=== PATIENT | male | born 1965 | race Caucasian/White ===

== ENCOUNTER 2019-09-07 19:04 | Inpatient (IN) | payer OTHER ==
[~2019-09-07] VITALS: Ht 175.3 cm; Wt 89.4 kg
[2019-09-07 19:05] VITALS: BP 94/61
[2019-09-07] MEDS ORDERED: TRAMADOL 50 MG50 MG PO (19:19)
[2019-09-07] MEDS ORDERED: NEURONTIN600 MG PO (19:19)
[2019-09-07] MEDS ORDERED: LISINOPRIL40 MG PO (19:19)
[2019-09-07] MEDS ORDERED: BENTYL 20 MG TA20 M1 PO (19:20)
[2019-09-07] MEDS ORDERED: SERTRALINE HCL50 MG PO (19:20)
[2019-09-07] MEDS ORDERED: LEVSIN0.125 MG PO (19:21)
[2019-09-07 19:27] LABS: ABSOLUTE NEUTROPHILS 14.2 thou/uL (1.4-8.2); BASOPHILS 0.7 % (0.0-2.0); EOSINOPHILS 0.6 % (0.0-3.0); HEMATOCRIT 41.7 % (42.0-52.0); HEMOGLOBIN 14.1 gm/dL (14.0-18.0); LYMPHOCYTES 15.3 % (24.0-44.0); MCH 32.1 pg (26.0-34.0); MCHC 33.8 g/dL (28.0-37.0); MCV 95.1 fL (80.0-100.0); MONOCYTES 8.6 % (1.0-8.0); PLATELET COUNT 437 thou/uL (150-400); POLYS 74.8 % (36.0-66.0); RBC 4.39 mil/uL (4.50-6.00)
[2019-09-07 19:36] LABS: ANION GAP 8 mmol/L (7-16); BUN 22 mg/dL (7-18); CALCIUM 7.7 mg/dL (8.5-10.1); CHLORIDE 99 mmol/L (98-107); CO2 26 mmol/L (21-32); CREATININE 2.1 mg/dL (0.7-1.3); GLUCOSE 122 mg/dL (74-106); POTASSIUM 3.7 mmol/L (3.5-5.1); SODIUM 133 mmol/L (136-145)
[2019-09-07 19:46] LABS: ALBUMIN 3.3 g/dL (3.4-5.0); SGOT 42 U/L (15-37); SGPT 103 U/L (30-65); TOTAL BILIRUBIN 0.2 mg/dL (0.2-1.0); TOTAL PROTEIN 6.5 g/dL (6.4-8.2); TROPONIN-I <0.06 ng/mL (<0.06)
[2019-09-07 21:34] VITALS: BP 106/58
[2019-09-07 21:48] LABS: URINE BILIRUBIN NEGATIVE (Negative); URINE BLOOD NEGATIVE (Negative); URINE CLARITY CLEAR; URINE COLOR YELLOW; URINE GLUCOSE-RANDOM* NEGATIVE (Negative); URINE KETONES NEGATIVE (Negative); URINE LEUKOCYTES-REFLEX NEGATIVE (Negative); URINE NITRITE-REFLEX NEGATIVE (Negative); URINE PROTEIN (DIPSTICK) TRACE (Negative); URINE UROBILINOGEN 0.2 E.U./dl (0.2-1.0)
[2019-09-07 22:41] VITALS: BP 101/74
[2019-09-07 23:10] VITALS: BP 112/69
[2019-09-08 04:45] VITALS: BP 96/58
[2019-09-08 05:14] LABS: HEMATOCRIT 41.4 % (42.0-52.0); HEMOGLOBIN 13.5 gm/dL (14.0-18.0); MCH 31.6 pg (26.0-34.0); MCHC 32.7 g/dL (28.0-37.0); MCV 96.8 fL (80.0-100.0); RBC 4.28 mil/uL (4.50-6.00); RDW 14.6 % (10.5-14.5); WBC 11.7 thou/uL (4.0-11.0)
[2019-09-08 06:28] LABS: CALCIUM 7.8 mg/dL (8.5-10.1); CREATININE 1.3 mg/dL (0.7-1.3); MAGNESIUM 2.3 mg/dL (1.8-2.4)
[2019-09-08 06:39] LABS: POTASSIUM 4.7 mmol/L (3.5-5.1)
[2019-09-08 07:19] LABS: CHOLESTEROL 161 mg/dL (<200); HDL CHOLESTEROL 50 mg/dL (>40); LDL CHOLESTEROL 77 mg/dL (<100); TC:HDL 3.2 Ratio (Not establshd); TRIGLYCERIDE 171 mg/dL (<150); VLDL 34 mg/dL (<40)
--- NOTE | 2019-09-08 07:56 | EKG ---
[facility] [place] [address] ELECTROCARDIOGRAM REPORT Name: KAILEE JIMENEZ Room #: 206-P ADM IN M.R.#: [id number] Admission: 09/07/19 Attend Phys: Brady Jones MD Discharge: Date of : 65 Report #: [id number] THIS REPORT FOR: cc: LENNY - Deyanira family physician/PCP FAM - No family physician/PCP Jarrell Lepe MD [facility] ~ THIS REPORT FOR: //name// [facility] ED Test Date: 2019-09-07 Test Time: 19:11:15 Pat Name: KAILEE JIMENEZ Department: Room: [facility] Gender: M [employer] Man: : 1965 Requested By: Savannah Finley Order Number: [id number] MD: Jarrell Lepe Measurements Intervals [place] Rate: 82 P: 76 WV: 123 QRS: 76 QRSD: 87 T: 50 QT: 359 QTc: 420 Interpretive Statements Sinus rhythm ST elev, probable normal early repol pattern Baseline wander in lead(s) V2 No previous ECG available for comparison Electronically Signed On 09-08-2019 7:56:45 CDT by Jarrell Lepe [email or web address] <ELECTRONICALLY SIGNED> By: Jarrell Lepe MD, [facility] 09/08/19 0756 10 10 Jarrell Lepe MD, [facility] /EPI
[2019-09-08 08:00] VITALS: BP 120/78
--- NOTE | 2019-09-08 08:19 | NUR ---
RECEIVED REPORT FROM LUPE.PATIENT A/O X 4.PAIN FAIRLY CONTROLLED.ULTRASOUND THIS AM.POC CONTINUED.
--- NOTE | 2019-09-08 09:39 | 2DMMODE ---
[facility] [address] [facility] [place] [address] 2 D/M-MODE ECHOCARDIOGRAM Name: KAILEE JIMENEZ Room #: 206-P ADM IN M.R.#: [id number] Admission: 09/07/19 Attend Phys: Brady Jones MD Discharge: Date of : 65 Report #: [id number] THIS REPORT FOR: cc: LENNY - No family physician/PCP FAM - No family physician/PCP Alec Crum MD ~ APPROVED REPORT Study performed: 09/08/2019 08:54:40 EXAM: Comprehensive 2D, Doppler, and color-flow Echocardiogram Patient Location: Bedside Room #: 206 Status: routine BSA: 2.04 HR: 55 bpm BP: 120/78 mmHg Rhythm: NSR Other Information Study Quality: Fair Technically limited study due to lung artifact, COPD. Indications Pre-syncope. Hx: HTN, CVA, COPD. 2D Dimensions RVDd: 39.42 mm IVSd: 9.70 (7-11mm) LVOT Diam: 24.35 (18-24mm) LVDd: 44.04 mm PWd: 10.91 (7-11mm) Ascending Ao: 32.53 (22-36mm) LVDs: 29.45 (25-40mm) Aortic Root: 37.28 mm Volumes Left Atrial Volume (Systole) Single Plane 4CH: 53.97 mL Single Plane 2CH: 53.15 mL LA ESV Index: 28.00 mL/m2 Aortic Valve AoV Peak Rojas.: 1.40 m/s AO Peak Gr.: 7.81 mmHg LVOT Max P.[address] [facility] [address] [place] [address] 2 D/M-MODE ECHOCARDIOGRAM Name: KAILEE JIMENEZ Room #: 206-P [facility] IN [facility].#: [id number] Admission: 09/07/19 Attend Phys: Brady Jones, Discharge: Date of : 65 Report #: [id number] LVOT Max V: 1.26 m/s SADIQ Vmax: 4.21 cm2 Mitral Valve E/A Ratio: 1.8 MV Decel. Time: 230.26 ms MV E Max Rojas.: 0.94 m/s MV A Rojas.: 0.53 m/s MV PHT: 66.78 ms IVRT: 83.04 ms Pulmonary Valve PV Peak Rojas.: 0.81 m/s PV Peak Gr.: 2.62 mmHg Pulmonary Vein P Vein S: 0.57 m/s P Vein A: 0.34 m/s P Vein D: 0.59 m/s P Vein A Dur.: 124.6 msec P Vein S/D Ratio: 0.97 Tricuspid Valve RAP Estimate: 5.00 mmHg Left Ventricle The left ventricle is normal size. There is normal LV segmental wall motion. There is normal left ventricular wall thickness. Left ventricular systolic function is normal. LVEF is 60-65%. The left ventricular diastolic function is normal. Right Ventricle The right ventricle is normal size. The right ventricular systolic function is normal. Atria The left atrium size is normal. The right atrium size is normal. Aortic Valve The aortic valve is normal in structure. No aortic regurgitation is present. There is no aortic valvular stenosis. Mitral Valve The mitral valve is normal in structure. There is no mitral valve regurgitation noted. No evidence of mitral valve stenosis. Tricuspid Valve The tricuspid valve is normal in structure. There is no tricuspid [facility] [address] [place] [address] 2 D/M-MODE ECHOCARDIOGRAM Name: KAILEE JIMENEZ Room #: 206-P ADM IN M.R.#: [id number] Admission: 09/07/19 Attend Phys: Brady Jones, Discharge: Date of : 65 Report #: [id number] valve regurgitation noted. Unable to assess PA pressure. Pulmonic Valve Pulmonic valve is not well visualized. Great Vessels The aortic root is normal in size. The ascending aorta is normal in size. IVC is normal in size and collapses >50% with inspiration. Pericardium There is no pericardial effusion. <Conclusion> The left ventricle is normal size. LVEF is 60-65%. The aortic valve is normal in structure. The mitral valve is normal in structure. The tricuspid valve is normal in structure. Pulmonic valve is not well visualized. There is no pericardial effusion. <ELECTRONICALLY SIGNED> By: Alec Crum MD 09/08/19937 7 7 Alec Crum MD /INF
[2019-09-08 13:20] VITALS: BP 125/72
--- NOTE | 2019-09-08 19:53 | NUR ---
08:00 AOX4, C/O CHRONIC ABDOMEN PAIN AND REFLUX, PAIN MEDICATION GIVEN FOR SUCH AT THIS TIME. PT. HAS ECHO PENDING ON THEIR WAY TO PERFORM. DENIES CP, DENIES SOB. IV SITE IS C,D,I NO INFILTRAION AT SITE. FOLLOWS ALL COMANDS AND DENIES ANY FEELINGS OF BEING DIZZY THIS AM
--- NOTE | 2019-09-08 19:55 | NUR ---
12:00 PT A0X4 C/O PAIN AT ABDOMEN AGAIN, MEDICATED FOR SUCH. AT BESIDE WITH DIET BEVERAGE HE LIKES. STATED HAS A LONG HX OF GI ISSUES NOT RESOLVED YET BUT A COLONOSCOPY NEXT MONTH PENDING.
--- NOTE | 2019-09-08 19:56 | NUR ---
14:00 C/O PAIN MEDICATE FOR ABDOMEN AND GI PAIN TODAY. DENIES FEELING DIZZY AND SELF AMBULATES TO RESTOOM ALONE WITH NO BP CHANGES OBSERVED.
[2019-09-08 20:10] VITALS: BP 120/77
[2019-09-09 00:10] VITALS: BP 129/73
--- NOTE | 2019-09-09 03:42 | NUR ---
PT VITALS ARE STABLE. HE IS ALERT AND ORIENTED X4. COMPLAINS OF ABDOMINAL PAIN. AND PAIN MEDS GIVEN FOR DISCOMFORT. PT SLEEPING NOW WITH TV ON. LUNGS ARE CLEAR ON ROOM AIR. PT HAS HAD A LAMINECTOMY AND HAS BACK PAIN AND ABDOMINAL PAIN. ABDOMEN IS SOFT. BOWEL SOUNDS PRESENT. TAKEN DOWN FOR DIAGNOSITC TESTING THIS EVENING. CALL LIGHT WITHIN REACH IF NEEDS ASSISTANCE.
[2019-09-09 08:30] VITALS: BP 128/85
--- NOTE | 2019-09-09 11:45 | HC ---
[facility] [address] CONSULTATION Name: KAILEE JIMENEZ Room #: 206-P [facility] IN M.R.#: [id number] Admission: 09/07/19 Attend Phys: Bardy Jones MD Discharge: Date of : 65 Report #: [id number] THIS REPORT FOR: cc: LENNY Mcmillan family physician/PCP LENNY Mcmillan family physician/PCP Ethan Schofield MD ~ CC: [facility] physician/PCP Brady Jones DATE OF SERVICE: 09/08/2019 ENDOCRINE CONSULTATION NOTE CONSULTING PHYSICIAN: Dr. Jones. REASON FOR CONSULTATION: Hypothyroidism. 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 On arrival, the patient was found to be hypotensive and was admitted for further care and monitoring. During his admission workup, the patient was also screened for the issue of thyroid dysfunction, and was found to be hypothyroid. On further questioning, the patient explained that he was not aware of any prior personal or family history of thyroid disease. He has not experienced major body weight changes, skin changes, hair changes and has not appreciated much in terms of cold intolerance. Also, he has not had major difficulties with neck fullness, neck pain, compressive symptoms or voice changes. REVIEW OF SYSTEMS: CONSTITUTIONAL: Fatigue, tiredness. No major weight changes, fever or chills. HEENT: Negative for sore throat, sinus pain or ear drainage. PULMONARY: Negative for shortness of breath, cough or hemoptysis. CARDIAC: Negative for chest pain, palpitations, but noted for presyncope on arrival as well as hypertension. GASTROINTESTINAL: Negative for abdominal pain, nausea, vomiting or changes in bowel movement frequency. NEUROLOGY: Noted for dizziness, lightheadedness, but not loss of consciousness, seizure activity or severe frequent headaches. DERMATOLOGIC: Negative for skin rash, ulceration, discoloration or other major abnormalities. Otherwise, review of systems noncontributory other than those mentioned in HPI. PAST MEDICAL HISTORY: Noted for: [facility] [address] [place] [address] CONSULTATION Name: KAILEE JIMENEZ Room #: 206-P ADM IN M.R.#: [id number] Admission: 09/07/19 Attend Phys: Brady Jones MD Discharge: Date of : 65 Report #: [id number] 1. Hypertension. 2. CVA. 3. COPD. 4. Cervical spine stenosis. 5. Severe IBS. 6. History of ischemic colitis. 7. GERD. 8. History of pneumonia. 9. Depression. PAST SURGICAL HISTORY: C6-C7 fusion, L4-S1 laminectomy, right elbow surgery, lung biopsy. OUTPATIENT MEDICATIONS: Include lisinopril 40 mg daily, gabapentin 1200 mg t.i.d., tramadol 50 mg daily, Bentyl 20 mg t.i.d., sertraline 50 mg daily, Levsin 0.125 mg t.i.d. ALLERGIES: OMEPRAZOLE. FAMILY HISTORY: Noncontributory. SOCIAL HISTORY: The patient smokes a half a pack per day. Denies use of alcohol or illicit drugs. Works as a golf course keeper. He is and has 2 children. PHYSICAL EXAMINATION: GENERAL: Pleasant male patient who is not in apparent pain or distress. His was at bedside when I interviewed him. VITAL SIGNS: Blood pressure is 120/78 mmHg, heart rate is 51 beats per minute, respirations 12 per minute, temperature 36.3 degrees Celsius. CONSTITUTIONAL: The patient is sitting upright in bed, appears comfortable, not in apparent pain or distress. HEENT: Anicteric sclerae. Intact extraocular motions. NECK: Supple, without JVD, carotid bruits or lymphadenopathy. I do not appreciate thyromegaly. CHEST: Noted for good air entry bilaterally with scattered rales and rhonchi, but not wheezes or crackles. HEART: Regular rate and rhythm without murmurs or gallops. ABDOMEN: Soft, lax. No guarding. Active bowel sounds. EXTREMITIES: Lower extremity exam is negative for ankle edema, skin breaks or ulcerations. NEUROLOGIC: Awake, alert and oriented to time, place and person. The remainder of his examination is nonfocal. PSYCHIATRIC: Pleasant, interactive. Normal mood and affect. Normal thought process. [address] [address] CONSULTATION Name: KAILEE JIMENEZ Room #: 206-P [facility] IN M.R.#: [id number] Admission: 09/07/19 Attend Phys: Brady Jones MD Discharge: Date of : 65 Report #: [id number] LABORATORY RESULTS: Laboratory data were reviewed at length and showed a sodium of 135, this was 133 on arrival. Potassium 4.7, chloride 103, CO2 of 24, anion gap 8, BUN 21, creatinine 1.3, glucose 89, AST 42, total bilirubin 4.2, calcium 7.8, magnesium 2.3, alkaline phosphatase 58, ALT 103, total protein 6.5, albumin 3.3, EGFR 58. Troponin is negative. Total cholesterol 161, triglycerides 171, HDL 50, LDL 77. Free T4 of 0.7. White blood count 11.7, hemoglobin 13.5, hematocrit 41.4, platelets 288. TSH 38.655. ASSESSMENT AND PLAN: 1. Hypothyroidism. This is a new diagnosis to the patient and I certainly noted for a thyroid function indices that are consistent with overt hypothyroidism. The patient and his were counseled at length about the pathogenesis of hypothyroidism, its implications, and the importance of achieving and maintaining adequate thyroid hormone control to avoid long-term implications. We also discussed the details of levothyroxine intake for optimal absorption and the need for periodic followup. The patient's questions were answered in full. While the patient will need to be started on levothyroxine therapy, I would like to hold this off until we are assured that his adrenal, pituitary axis is intact, so as to address any issues with adrenal insufficiency that might not be identified at this point. 2. Hypotension. As noted above, the patient presented with a near syncopal episode and was found to be hypotensive on arrival. While the patient is undergoing a Cardiology workup for this issue and while the current therapeutic regimen for pain and neuropathy control could be contributing to this, I would like to rule out the possibility of adrenal insufficiency. In doing so, I will obtain a random cortisol level. If this is sufficient to rule out AI, I will proceed with thyroid hormone therapy. However, if the results are ambiguous or inconclusive, then an ACTH stimulation test will be ordered. 3. Hypocalcemia, although asymptomatic, it is significant at 7.8 mg/dL. I will order a vitamin D level to investigate the possibility of vitamin D deficiency. I certainly appreciate this consultation by Dr. Jones. <ELECTRONICALLY SIGNED> By: Ethan Schofield MD 09/09/19 1145 1244 1334 Ethan Schofield MD /nt
--- NOTE | 2019-09-09 12:22 | NUR ---
08:00 AM= ASSESSMENT COMPLETED AT THIS TIME. PT. IS SOMEWHAT DEMANDING THIS AM. TELLS STAFF WHAT TO DO, [employer]. HAS REQUESTED PAIN MEDICATION FIRST CONVERSATION AND WILL PROVIDE. REPORTS PAIN IS =8/10 AND WANTS HIS "FENTANYL" FIRST FOR LAMINECTOMY AND ABDOMEN PAIN. PT. EATS THOUGH WITH ZERO ISSUES OR NAUSEA OR VOMITING SO ABDOMEN PAIN REPORTING DOES NOT SEEM TO ALIGN WITH PHYSICAL CUES FOR ASSESSMENT TODAY? LONG DISCUSSION REGRDING CT SCAN LAST NIGHT AND WHY PERFORMED, EXPLAINED THEY ARE DOING A WORK UP AND THAT THEY ARE TRYING TO FURTHER DEFINE IMAGES THEY SAW ONT HE CHEST XRAY. WILL HAVE DR. ISRAEL DISCUSS THIS WITH HIM THIS AM FURTHER. DENIES ANY SOB, ON ROOM AIR AND LUNGS ARE CLEAR PRIOR. DENIES ANY CP. CALL LIGHT WITHIN REACH AND REVIEWED TO CALL ME FOR THINGS NEEDED TODAY-AGREED TO SUCH.
[2019-09-09 12:25] VITALS: BP 145/95
--- NOTE | 2019-09-09 12:25 | NUR ---
PT. ASKING FOR PAIN MEDICATION WILL PROVIDE FOR "BACK PAIN AND ABDOMEN PAIN AND TOLD ME HE WANTS TO " MAKE SURE HE GETS ALL OF HIS MEDICATION WHILE HE CAN". CONTINUES TO BE SB WITH NO ECTOPY ON ROOM AIR AND NO WHEEZING AUSCULTATED NOW. ABDOMEN IS ROUNDED BUT VERY SOFT ON PALPATION, + BOWEL SOUNDS ON ALL QUADRANTS. AWAITING AN ACTH STIM TEST AND CALLED LAB TO CONFIRM TESTING TIMES WITH THEM ONCE IT IS GIVEN.
[2019-09-09 12:28] VITALS: BP 128/85
--- NOTE | 2019-09-09 13:44 | NUR ---
Chart reviewed and discussed with the care team. Manager Shift visited with the pt and his Norma at bedside. Pt is &ox4 and indep with gait and adl's. Pt is feeling better and workup in progress for adrenal/thyroid issues. The pt reports he had recently left his job and is back to working for himself. He is awaiting the cobra paperwork from his previous employer so he can get that coverage in place until they are able to setup an individual plan or [employer]. gov coverage in the future. He has a pcp Dr. Jaiden Dos Santos in [place], [place]. He is familiar with good rx and the [facility] $4 scripts. He denies any dc needs or concerns at this time. He is relieved to be getting to the bottom of why he has been feeling poorly. Dc later today or tomorrow. Will follow along should dc needs arise.
--- NOTE | 2019-09-09 16:43 | NUR ---
PT. DONE NOW WITH ACTH STIM TEST, TOLERATED IT WELL. NO CHESTPAIN, NO SOB. ASKING FOR PAIN MEDICATION AT THIS ITME FOR HIS BACK, WILL RESPOND. SCORES PAIN 7/10, CHRONIC IN NATURE, NOT NEW.
[2019-09-09 16:52] VITALS: BP 136/85
[2019-09-09 19:50] VITALS: BP 129/60
--- NOTE | 2019-09-10 02:05 | NUR ---
PT WAS FIRST SEEN BY RN WALKING AROUND IN UNIT, PT IS TALKATIVE AND ABLE TO AMBULATE SELF AROUND THE UNIT WHILE CARRYING THE IV POLE. PT REQUESTS IV FENTANYL AROUND THE CLOCK, WELL TRAMADOL AROUND THE CLOCK FOR GENERALIZED ABDOMINAL PAIN AND POSITIONAL NECK PAIN. PT IS AOX4, PLEASANT. PT STATED AN IV SITE WAS LEAKING SO NEW IV WAS PLACED FOR THE PT WELL. PT REQUESTED FENTANYL TO BE GIVEN AT 0130 BUT WHEN RN WENT IN THE ROOM, THE PT WAS SLEEPING. WILL ADMINISTER AT A LATER TIME TO AVOID OVER SEDATION. NO SPECIFIC CONCERNS FROM THE PT AT THIS TIME. PT IS STABLE, HAS A HEALTHY APPETITE, AND NO DISTRESS NOTED. WILL CONTINUE TO MONITOR AND UPDATE NEEDED
[2019-09-10 02:06] LABS: CORTISOL 30 MIN 2.1 ug/dL (Not Estab.); CORTISOL 60 MIN 18.9 ug/dL (Not Estab.); CORTISOL BASELINE 21.7 ug/dL (())
[2019-09-10 04:06] VITALS: BP 146/78
[2019-09-10 05:51] LABS: HEMOGLOBIN 14.9 gm/dL (14.0-18.0); MCH 31.8 pg (26.0-34.0); MCHC 33.1 g/dL (28.0-37.0); MCV 96.1 fL (80.0-100.0); RBC 4.68 mil/uL (4.50-6.00); RDW 14.2 % (10.5-14.5); WBC 8.6 thou/uL (4.0-11.0)
[2019-09-10 06:28] LABS: CREATININE 1.1 mg/dL (0.7-1.3); POTASSIUM 4.2 mmol/L (3.5-5.1)
[2019-09-10 07:55] VITALS: BP 155/90
[2019-09-10] MEDS ORDERED: AUGMENTIN 875-1 EACH PO (11:07)
[2019-09-10] MEDS ORDERED: SYNTHROID137 MC1 PO (11:07)
[2019-09-10 11:30] VITALS: BP 155/90
[2019-09-10] MEDS ORDERED: NORCO 10-325 T1 EACH PO (11:39)
--- NOTE | 2019-09-10 11:48 | NUR ---
ASSUMMED PT CARE AT APPROXIMATELY 0700. PT A&O X4. ASSESSMENT CHARTED. PT AMBULATES STEADY/INDEPENDENT. PT DENIES HAVING CHEST PAIN. PT DENIES HAVING SOB. PT STATED HE HAS CHRONIC NECK PAIN. PT RECEIVED ANALGESICS. PT DISCHARGING HOME C SELF CARE. PT RECEIVED DISCHARGE EDUCATION. PT STATED UNDERSTANDING AND DENIED HAVING FURTHER QUESTIONS. IV DC. TELE DC. VITAL SIGNS STABLE. PT DENIES HAVING FURTHER CONCERNS. PT COMFORTABLE.
== END 2019-09-10 12:30 | disposition home or self-care (01) | DRG 682 ==
LOC: ER 19:04 → EROBS 20:38 → 2N 22:41
PROVIDERS: Emergency Medicine; Hospitalist; Internal Medicine; Nurse Practitioner Family; Physician Assistant; ADMIT Internal Medicine; ATTEND Internal Medicine
DX: N17.9 Acute kidney failure, unspecified (principal); J18.9 Pneumonia, unspecified organism; E27.40 Unspecified adrenocortical insufficiency; I95.89 Other hypotension; J44.9 Chronic obstructive pulmonary disease, unspecified; K21.9 Gastro-esophageal reflux disease without esophagitis; F32.9 Major depressive disorder, single episode, unspecified; I10 Essential (primary) hypertension; E03.9 Hypothyroidism, unspecified; E83.51 Hypocalcemia; F17.210 Nicotine dependence, cigarettes, uncomplicated; R10.32 Left lower quadrant pain; Z88.8 Allergy status to other drugs, medicaments and biological substances; Z82.49 Family history of ischemic heart disease and other diseases of the circulatory system; Z86.73 Personal history of transient ischemic attack (TIA), and cerebral infarction without residual deficits; Z80.0 Family history of malignant neoplasm of digestive organs; G89.29 Other chronic pain; E78.5 Hyperlipidemia, unspecified; E86.9 Volume depletion, unspecified
CPT/HCPCS: 10081

== ENCOUNTER 2020-10-19 11:30 | Emergency (ER) | payer OTHER ==
[~2020-10-19] VITALS: Ht 175.3 cm; Wt 99.8 kg
[~2020-10-19 11:30] MED LIST: AUGMENTIN 875-1 EACH PO; BENTYL 20 MG TA20 M1 PO; LEVSIN0.125 MG PO; LISINOPRIL40 MG PO; NEURONTIN600 MG PO; NORCO 10-325 T1 EACH PO; SERTRALINE HCL50 MG PO; SYNTHROID137 MC1 PO; TRAMADOL 50 MG50 MG PO
[2020-10-19 12:05] LABS: ABSOLUTE NEUTROPHILS 5.7 thou/uL (1.4-8.2); BASOPHILS 0.8 % (0.0-2.0); EOSINOPHILS 0.8 % (0.0-3.0); HEMATOCRIT 46.8 % (42.0-52.0); HEMOGLOBIN 15.6 gm/dL (14.0-18.0); LYMPHOCYTES 17.8 % (24.0-44.0); MCH 30.6 pg (26.0-34.0); MCHC 33.3 g/dL (28.0-37.0); MCV 91.8 fL (80.0-100.0); PLATELET COUNT 312 thou/uL (150-400); POLYS 74.6 % (36.0-66.0); RBC 5.09 mil/uL (4.50-6.00); RDW 14.6 % (10.5-14.5); WBC 7.6 thou/uL (4.0-11.0)
[2020-10-19 12:18] LABS: CALCIUM 9.4 mg/dL (8.5-10.1); CREATININE 1.8 mg/dL (0.7-1.3); POTASSIUM 3.8 mmol/L (3.5-5.1)
[2020-10-19 14:24] LABS: ALBUMIN 4.1 g/dL (3.4-5.0); DIRECT BILIRUBIN < 0.1 mg/dL (<0.1-0.2); LIPASE 90 U/L (73-393); SGOT 24 U/L (15-37); SGPT 37 U/L (30-65); TOTAL BILIRUBIN 0.4 mg/dL (0.2-1.0); TOTAL PROTEIN 7.6 g/dL (6.4-8.2)
[2020-10-19 15:15] LABS: URINE BILIRUBIN NEGATIVE (Negative); URINE BLOOD NEGATIVE (Negative); URINE CLARITY CLEAR; URINE COLOR YELLOW; URINE GLUCOSE-RANDOM* NEGATIVE (Negative); URINE KETONES 1+ (Negative); URINE LEUKOCYTES-REFLEX NEGATIVE (Negative); URINE NITRITE-REFLEX NEGATIVE (Negative); URINE PROTEIN (DIPSTICK) NEGATIVE (Negative); URINE UROBILINOGEN 0.2 E.U./dl (0.2-1.0)
--- NOTE | 2020-10-19 15:42 | EKG ---
[place] [address] [facility] [employer] [address] ELECTROCARDIOGRAM REPORT Name: KAILEE JIMENEZ [id number] Admission: 10/19/20 Attend Phys: Discharge: Date of : 65 Report #: [id number] [facility] ED Test Date: 2020-10-19 Test Time: 11:40:37 Pat Name: KAILEE JIMENEZ Department: Room: Gender: M Seat Cover Cutter: torey : 1965 Requested By: Kaylie Schaffer Order Number: [id number] MD: Raffi eL Measurements Intervals [place] Rate: 118 P: 73 [place]: 139 QRS: 75 QRSD: 94 T: 54 QT: 317 QTc: 445 Interpretive Statements Sinus tachycardia Ventricular premature complex Compared to ECG 09/07/2019 19:11:15 Ventricular premature complex(es) now present Sinus rhythm no longer present ST (T wave) deviation no longer present Electronically Signed On 10-19-2020 15:42:24 CDT by Raffi Le [email or web address] <ELECTRONICALLY SIGNED> By: Raffi Le MD, [facility] 10/19/20 1542 1140 1140 Raffi Le MD, [facility] /EPI
[2020-10-19] MEDS ORDERED: ULTRAM 50MG TAB50 MG PO (16:22)
[2020-10-19 16:26] VITALS: BP 157/103
== END 2020-10-19 16:26 | disposition home or self-care (01) ==
LOC: ER 11:30
PROVIDERS: Emergency Medicine
DX: R10.30 Lower abdominal pain, unspecified (principal); Z20.822 Contact with and (suspected) exposure to COVID-19; R94.6 Abnormal results of thyroid function studies; J44.9 Chronic obstructive pulmonary disease, unspecified; F17.210 Nicotine dependence, cigarettes, uncomplicated; Z79.899 Other long term (current) drug therapy; Z88.8 Allergy status to other drugs, medicaments and biological substances